=== PATIENT | female | born 1995 | race Caucasian/White ===

== ENCOUNTER 2017-10-02 12:25 | Emergency (ER) | payer OTHER ==
[2017-10-02 12:41] VITALS: BP 143/93
--- NOTE | 2017-10-02 13:22 | UC ---
Skin Complaint HPI - HPI Summary HPI Summary: Patient presents with a red bumpy rash on her face by her hairline that started yesterday. It has spread down to her neck, around her ears and is also scattered on her trunk. She has had mild cough and sore throat/pain with swallowing for about 2 days. No known fever. No ear pain. - History of Current Complaint Chief Complaint: UCRash Time Seen by Provider: 10/02/17 12:44 Stated Complaint: RASH Hx Obtained From: Patient Hx Last Menstrual Period: 3 weeks ago Onset/Duration: Gradual Onset, Lasting Days, Still Present Timing: Constant Onset Severity: Moderate Current Severity: Moderate Pain Intensity: 0 Pain Scale Used: 0-10 Numeric Character: Pruritus, Redness, Raised Aggravating Factor(s): Nothing Alleviating Factor(s): Nothing - Allergy/Home Medications Allergies/Adverse Reactions: Allergies Allergy/AdvReac Type Severity Reaction Status Date / Time No Known Allergies Allergy Verified 10/02/17 12:41 Home Medications: Home Medications Escitalopram Oxalate [Lexapro 10 mg] 1 tab PO DAILY 10/02/17 [History Confirmed 10/02/17] Ibuprofen [Advil] 3 tab PO BID PRN 10/02/17 [History Confirmed 10/02/17] diphenhydrAMINE HCl [Benadryl Allergy 25 MG CAP] 2 tab PO BID PRN 10/02/17 [ History Confirmed 10/02/17] Review of Systems Constitutional: Negative Skin: Rash ENT: Sore Throat Respiratory: Cough Cardiovascular: Negative Gastrointestinal: Negative All Other Systems Reviewed And Are Negative: Yes PMH/Surg Hx/FS Hx/Imm Hx Previously Healthy: Yes - Surgical History Surgical History: None Surgery Procedure, Year, and Place: denies - Family History Known Family History: Positive: Hypertension - Social History Alcohol Use: Weekly Substance Use Type: None Smoking Status (MU): Never Smoked Tobacco - Immunization History Most Recent Tetanus Shot: UTD Physical Exam Triage Information Reviewed: Yes Appearance: Well-Appearing, No Pain Distress, Well-Nourished Vital Signs: Initial Vital Signs Temp 99.7 F 10/02/17 12:33 Pulse 83 10/02/17 12:33 Resp 18 10/02/17 12:33 BP 143/93 10/02/17 12:33 Pulse Ox 100 10/02/17 12:33 Vital Signs Reviewed: Yes Eyes: Positive: Conjunctiva Clear ENT: Positive: Hearing grossly normal, Pharyngeal erythema, TMs normal. Negative: Tonsillar swelling, Tonsillar exudate, Hoarse voice Neck: Positive: Supple, Tenderness @ - Tender superficial cervical LAD, Enlarged Nodes @ - Tender superficial cervical LAD Respiratory Exam: Normal Cardiovascular Exam: Normal Abdomen Description: Positive: Soft Musculoskeletal: Positive: No Edema Neurological: Positive: Alert Psychological: Positive: Age Appropriate Behavior Skin: Positive: rashes - RAISED, RED PAPULES ON FACE BY HAIRLINE, ON EARS, BEHIND EARS, DOWN NECK, ON CHEST AND SCATTERD ON ABDOMEN AND BACK. NOT TENDER. NO EXCORIATION Diagnostics - Laboratory Diagnostic Studies Completed/Ordered: STREP NEGATIVE Course/Dx - Diagnoses Provider Diagnoses: 1. DERMATITIS. 2. ACUTE PHARYNGITIS Discharge - Sign-Out/Discharge Documenting (check all that apply): Discharge/Admit/Transfer - Discharge Plan Condition: Stable Disposition: HOME Prescriptions: predniSONE TAB* [Deltasone TAB*] 50 mg PO DAILY #5 tab Triamcinolone 0.1% CREAM(NF) [Kenalog Cream 0.1%(NF)] 1 applic TOPICAL TID PRN # 1 tube PRN Reason: Itching Patient Education Materials: Pharyngitis (ED), Dermatitis (ED) Forms: *Work Release Referrals: No Primary Care Phys,NOPCP [Primary Care Provider] - Additional Instructions: UNCLEAR ETIOLOGY OF YOUR RASH TODAY. IT SEEMS TO BE INFLAMMATORY/ALLERGIC. WILL TREAT WITH PREDNISONE DAILY FOR 5 DAYS AND A TOPICAL STEROID. AVOID MUCOUS MEMBRANES. KEEP COOL CLEAN AND DRY. TAKE OTC ANTIHISTAMINE DAILY. IBUPROFEN FOR DISCOMFORT AND FEVER. CLEANSE FACE WITH HYPOALLERGENIC MILD SOAP SUCH DOVE FOR SENSITIVE SKIN. DO NOT APPLY ANY MAKEUP OR SCENTED LOTIONS. FOLLOW-UP WITH DERMATOLOGY IF YOUR SYMPTOMS DO NOT IMPROVE WITH TREATMENT. DERMATOLOGY IN [place] DR[address] PIYUSH HEMPHILL [facility], [facility] [address] [facility]; [address] [place] [address] Dr. Shannon Felton Address: [facility] [place] [address] DR. CHRISTO KEVIN [facility] [address] [place] [address] DER[address] IN [place] Dr. Violet Davis DERMATOLOGY [place] DR. EDMOND DICKSON [phone] - Billing Disposition and Condition Condition: STABLE Disposition: Home
== END 2017-10-02 13:40 | disposition home or self-care (01) ==
LOC: UCEAST 12:25
DX: L30.9 Dermatitis, unspecified (principal); J02.9 Acute pharyngitis, unspecified; Z82.49 Family history of ischemic heart disease and other diseases of the circulatory system
CPT/HCPCS: 87651; 99202; G0463